=== PATIENT | male | born 1980 ===

== ENCOUNTER 2018-05-22 14:25 | Emergency (ER) | payer OTHER ==
[2018-05-22 14:40] VITALS: BMI 63.8
[2018-05-22 14:42] VITALS: RESP 18
--- NOTE | 2018-05-22 15:19 | ED PDOC ---
Arrival/HPI - General Historian: Patient - History of Present Illness Narrative History of Present Illness (Text): 05/22/18 15:16 Patient is a 37 year old male with no significant past medical history who presents with a laceration on his scalp. Patient states that he was working in the house when a piece of metal that weighed approximately 15 lbs fell on his head. After the incident patient reports having some pain to the left side of his neck. He offers no other complaints at this time. Denies headaches, dizziness, visual changes, cp, palpitations, sob, abdominal pain, urinary symptoms. Last tetanus shot was 2 years ago. Time/Duration: Prior to Arrival Symptom Onset: Sudden Severity Level: 3, Mild <Mariely Trimble - Last Filed: 05/22/18 17:21> <Marissa Jordan - Last Filed: 05/22/18 18:41> - General Chief Complaint: Abnormal Skin Integrity Time Seen by Provider: 05/22/18 15:10 Past Medical History - Provider Review Nursing Documentation Reviewed: Yes - Infectious Disease Hx of Infectious Diseases: None - Cardiac Hx Cardiac Disorders: No - Pulmonary Hx Respiratory Disorders: No - Neurological Hx Neurological Disorder: No - HEENT Hx HEENT Disorder: No - Renal Hx Renal Disorder: No - Endocrine/Metabolic Hx Endocrine Disorders: No - Hematological/Oncological Hx Blood Disorders: No - Integumentary Hx Dermatological Disorder: No - Musculoskeletal/Rheumatological Hx Musculoskeletal Disorders: No Hx Falls: No - Gastrointestinal Hx Gastrointestinal Disorders: No - Genitourinary/Gynecological Hx Genitourinary Disorders: No - Psychiatric Hx Psychophysiologic Disorder: No Hx Substance Use: No - Anesthesia Hx Anesthesia: No <Mariely Trimble - Last Filed: 05/22/18 17:21> Family/Social History - Physician Review Nursing Documentation Reviewed: Yes Family/Social History: No Known Family HX Smoking Status: Never Smoked Hx Alcohol Use: No Hx Substance Use: No <Mariely Trimble - Last Filed: 05/22/18 17:21> Allergies/Home Meds <Mariely Trimble - Last Filed: 05/22/18 17:21> <Marissa Jordan - Last Filed: 05/22/18 18:41> Allergies/Adverse Reactions: Allergies No Known Allergies Allergy (Verified 05/22/18 14:40) Home Medications: Home Meds Medication Instructions Recorded Confirmed No Known Home Med 05/22/18 05/22/18 Review of Systems - Physician Review All systems were reviewed & negative as marked: Yes - Review of Systems Constitutional: Normal. absent: Fatigue, Fevers Eyes: Normal. absent: Vision Changes ENT: Normal. absent: Hearing Changes Respiratory: Normal. absent: SOB, Cough Cardiovascular: Normal. absent: Chest Pain Gastrointestinal: Normal. absent: Abdominal Pain, Constipation, Diarrhea, Nausea, Vomiting Genitourinary Male: Normal. absent: Dysuria Musculoskeletal: Normal, Neck Pain Neurological: Normal. absent: Headache, Dizziness <Mariely Trimble - Last Filed: 05/22/18 17:21> Physical Exam Vital Signs Reviewed: Yes Vital Signs Temp Pulse Resp BP Pulse Ox 05/22/18 14:41 98.3 F 75 18 152/95 H 96 Temperature: Afebrile Blood Pressure: Hypertensive Pulse: Regular Respiratory Rate: Normal Appearance: Positive for: Well-Appearing, Comfortable Pain Distress: None Mental Status: Positive for: Alert and Oriented X 3 - Systems Exam Head: Present: Normocephalic, Laceration (scalp laceration on left frontal area measuring 2 inches). No: Swelling Pupils: Present: PERRL Extroacular Muscles: Present: EOMI Conjunctiva: Present: Normal Mouth: Present: Moist Mucous Membranes Neck: Present: Normal Range of Motion. No: Meningeal Signs, MIDLINE TENDERNESS, Paraspinal Tenderness Respiratory/Chest: Present: Clear to Auscultation, Good Air Exchange. No: Respiratory Distress, Accessory Muscle Use Cardiovascular: Present: Regular Rate and Rhythm, Murmurs Abdomen: Present: Normal Bowel Sounds. No: Tenderness, Distention <Mariely Trimble - Last Filed: 05/22/18 17:21> Vital Signs Temp Pulse Resp BP Pulse Ox 05/22/18 16:14 98.1 F 77 18 149/87 99 05/22/18 14:41 98.3 F 75 18 152/95 H 96 <Marissa Jordan - Last Filed: 05/22/18 18:41> Medical Decision Making ED Course and Treatment: 05/22/18 15:19 Patient seen and examined at bedside. Patient presents with approximately 2 inch laceration to his left scalp. Will repair laceration with micah. 05/22/18 15:51 Scalp laceration irrigated and cleaned. Laceration repaired with micah. Patient tolerated the procedure well. Patient instructed to return to ED in 7-10 days for removal. - Procedure PROCEDURE NOTE (Text): 05/22/18 15:52 Patient with 2 inch scalp laceration. Wound was irrigated and cleaned with normal saline. Wound was reappoximated with 12 micah. Hemostasis achieved. Bacitracin applied. Patient tolerated the procedure well. <Mariely Trimble - Last Filed: 05/22/18 17:21> ED Course and Treatment: 05/22/18 15:40 37 year old male presents to the Emergency department with left scalp laceration. In agreement with resident note which contains more details about the patient. Patient seen and evaluated with resident. Came up with plan and treatment together. - Medication Orders Current Medication Orders: Discontinued Medications Ibuprofen (Motrin Tab) 600 mg PO STAT STA Stop: 05/22/18 15:24 Last Admin: 05/22/18 16:08 Dose: 600 mg MAR Pain/Vitals Document 05/22/18 16:08 [email or web address] (Rec: 05/22/18 16:09 [email or web address] [facility] [id number]) Pain Reassessment Is This A Pain ReAssessment? No Sleep Is patient sleeping during reassessment? No Presence of Pain Presence of Pain Yes Pain Scale Used Protocol: PSCALES Pain Scale Used Numeric Location Pain Location Body Hearing Therapist Description Constant Intensity 7 Scale Used Numeric Pain Behavior Facial Grimacing Aggravating Factors Changing Position Alleviating Factors Medication <Marissa Jordan - Last Filed: 05/22/18 18:41> - PA / JEWELRY INSPECTOR / Resident Statement / has reviewed & agrees with the documentation as recorded. MD/ has examined the patient and agrees with the treatment plan. - Scribe Statement The provider has reviewed the documentation as recorded by the Scribe Jam Price. All medical record entries made by the Scribe were at my direction and personally dictated by me. I have reviewed the chart and agree that the record accurately reflects my personal performance of the history, physical exam, medical decision making, and the department course for this patient. I have also personally directed, reviewed, and agree with the discharge instructions and disposition. <Marissa Jordan - Last Filed: 05/22/18 18:41> Disposition/Present on Arrival - Present on Arrival Any Indicators Present on Arrival: Yes History of DVT/PE: No History of Uncontrolled Diabetes: No Urinary Catheter: No History of Decub. Ulcer: No History Surgical Site Infection Following: None - Disposition Have Diagnosis and Disposition been Completed?: Yes Disposition Time: 15:50 Patient Plan: Discharge <Mariely Trimble - Last Filed: 05/22/18 17:21> <Marissa Jordan - Last Filed: 05/22/18 18:41> - Disposition Diagnosis: Laceration Disposition: HOME/ ROUTINE Condition: GOOD Discharge Instructions (ExitCare): Laceration Repair With Micah (DC) Additional Instructions: - Please return to the emergency department in 7-10 days for staple removal - If any worsening of symptoms, return to the emergency department sooner Forms: [facility] (Sing[place]an)
[2018-05-22 16:15] VITALS: BP 149/87; PULSE 77; TEMP 98.1; O2SAT 99
== END 2018-05-22 16:16 | disposition home or self-care (01) ==
LOC: ED 14:25
DX: S01.01XA Laceration without foreign body of scalp, initial encounter (principal); W20.8XXA Other cause of strike by thrown, projected or falling object, initial encounter; Y92.89 Other specified places as the place of occurrence of the external cause; Y99.0 Civilian activity done for income or pay

== ENCOUNTER 2018-05-29 12:27 | Emergency (ER) | payer OTHER ==
--- NOTE | 2018-05-29 12:59 | ED PDOC ---
Arrival/HPI - General Historian: Patient - History of Present Illness Narrative History of Present Illness (Text): 05/29/18 12:54 37 y/o male, nkda, here for the staple removal x 7 days. Pt. stated that he had the stapled about 7 days ago, here for the removal, stated that he feels well, no nausea/vomiting/fever, no rash, no night sweat, no headache, no dizziness, no other medical or psychological complaints. Past Medical History - Provider Review Nursing Documentation Reviewed: Yes - Infectious Disease Hx of Infectious Diseases: None - Cardiac Hx Cardiac Disorders: No - Pulmonary Hx Respiratory Disorders: No - Neurological Hx Neurological Disorder: No - HEENT Hx HEENT Disorder: No - Renal Hx Renal Disorder: No - Endocrine/Metabolic Hx Endocrine Disorders: No - Hematological/Oncological Hx Blood Disorders: No - Integumentary Hx Dermatological Disorder: No - Musculoskeletal/Rheumatological Hx Musculoskeletal Disorders: No Hx Falls: No - Gastrointestinal Hx Gastrointestinal Disorders: No - Genitourinary/Gynecological Hx Genitourinary Disorders: No - Psychiatric Hx Psychophysiologic Disorder: No Hx Substance Use: No - Anesthesia Hx Anesthesia: No Family/Social History - Physician Review Nursing Documentation Reviewed: Yes Family/Social History: Unknown Family HX Smoking Status: Never Smoked Hx Alcohol Use: No Hx Substance Use: No Allergies/Home Meds Allergies/Adverse Reactions: Allergies No Known Allergies Allergy (Verified 05/22/18 14:40) Home Medications: Home Meds Medication Instructions Recorded Confirmed No Known Home Med 05/22/18 05/22/18 Review of Systems - Review of Systems Constitutional: absent: Fatigue, Fevers Eyes: absent: Vision Changes ENT: absent: Hearing Changes Respiratory: absent: SOB, Cough Cardiovascular: absent: Chest Pain Gastrointestinal: absent: Abdominal Pain, Nausea, Vomiting Musculoskeletal: absent: Arthralgias, Back Pain Skin: Other (+stapled wound). absent: Rash, Pruritis Neurological: absent: Headache, Dizziness Psychiatric: absent: Anxiety, Depression, Suicidal Ideation Physical Exam - Systems Exam Head: Present: Laceration (visibled healed anterior parietal 12 stapled wound with no cellulitis or ulcers. ) Pupils: Present: PERRL Extroacular Muscles: Present: EOMI Conjunctiva: Present: Normal Mouth: Present: Moist Mucous Membranes Neck: Present: Normal Range of Motion, Trachea Midline. No: Meningeal Signs, MIDLINE TENDERNESS, Paraspinal Tenderness, Lymphadenopathy Respiratory/Chest: Present: Clear to Auscultation, Good Air Exchange. No: Respiratory Distress, Accessory Muscle Use Cardiovascular: Present: Regular Rate and Rhythm, Normal S1, S2. No: Murmurs Abdomen: No: Tenderness, Distention, Peritoneal Signs Back: Present: Normal Inspection Upper Extremity: Present: Normal Inspection. No: Cyanosis, Edema Lower Extremity: Present: Normal Inspection. No: Edema Neurological: Present: GCS=15, CN II-XII Intact, Speech Normal Skin: Present: Warm, Dry, Normal Color. No: Rashes Psychiatric: Present: Alert, Oriented x 3, Normal Insight, Normal Concentration Medical Decision Making ED Course and Treatment: 05/29/18 13:06 -12 dejan removed with success, no remaining dejan or sutures, pt. stated that he feels well, no pain or discomfort, request to be discharged home. -Discharge home with education follow up with your own pmd within 2 days, return to the ER for any new or worsening signs or symptoms. - PA / RN CARE MANAGER / Resident Statement MD/DO has reviewed & agrees with the documentation as recorded. Disposition/Present on Arrival - Present on Arrival Any Indicators Present on Arrival: No History of DVT/PE: No History of Uncontrolled Diabetes: No Urinary Catheter: No History of Decub. Ulcer: No History Surgical Site Infection Following: None - Disposition Have Diagnosis and Disposition been Completed?: Yes Diagnosis: Removal of dejan Disposition: HOME/ ROUTINE Disposition Time: 13:09 Patient Plan: Discharge Condition: IMPROVED Additional Instructions: -Discharge home with education follow up with your own pmd within 2 days, return to the ER for any new or worsening signs or symptoms. Referrals: [facility] at [facility] [place] [Outside] - Follow up with primary Forms: WORK NOTE
[2018-05-29 13:09] VITALS: BMI 45.9
[2018-05-29 13:12] VITALS: BP 107/65; PULSE 73; RESP 18; TEMP 98.2; O2SAT 100
== END 2018-05-29 13:30 | disposition home or self-care (01) ==
LOC: ED 12:27
DX: Z48.02 Encounter for removal of sutures (principal)